=== PATIENT | male | born 1985 | race Asian ===

== ENCOUNTER 2018-02-07 01:31 | Emergency (ER) | payer MEDICAID ==
[~2018-02-07] VITALS: Ht 162.6 cm; Wt 56.0 kg
[2018-02-07 01:42] VITALS: BP 152/107
[2018-02-07] MEDS ORDERED: AMOX500C2 PO (02:15)
== END 2018-02-07 02:22 | disposition home or self-care (01) ==
LOC: ER 01:32
DX: H92.01 Otalgia, right ear (principal); R50.9 Fever, unspecified; Z79.899 Other long term (current) drug therapy
CPT/HCPCS: 99283

== ENCOUNTER → 2018-06-18 | Emergency (ER) | payer MEDICAID ==
[~2018-06-18] VITALS: Ht 162.6 cm; Wt 63.6 kg
[2018-06-18 20:58] VITALS: BP 135/106
[2018-06-18] MEDS: ibuprofen tablet 400 MG TABLET PO ONE (21:59)
== END | disposition home or self-care (01) ==
LOC: ER 20:56
DX: R07.89 Other chest pain (principal)
CPT/HCPCS: 71045; 93005; 99283

== ENCOUNTER 2019-04-29 19:34 | Emergency (ER) | payer MEDICAID ==
[~2019-04-29] VITALS: Ht 162.6 cm; Wt 59.0 kg
[2019-04-29 19:35] VITALS: BP 142/79
[2019-04-29] MEDS ORDERED: ibuprofen 200mg tablet PO ONE (20:30)
--- NOTE | 2019-04-29 20:38 | NUR ---
pt with minimal pain now as he reports he took a norco less than an hour ago and "its now starting to work". Reports he may want to take it just before discharge. Pt taken to xray now. pts daughter at bedside.
== END 2019-04-29 21:04 | disposition home or self-care (01) ==
LOC: ER 19:34
DX: R07.89 Other chest pain (principal); F17.200 Nicotine dependence, unspecified, uncomplicated; F19.90 Other psychoactive substance use, unspecified, uncomplicated; W19.XXXA Unspecified fall, initial encounter; Y93.89 Activity, other specified; Y92.89 Other specified places as the place of occurrence of the external cause; Y99.8 Other external cause status
CPT/HCPCS: 71046; 99284

== ENCOUNTER 2019-05-25 23:35 | Emergency (ER) | payer MEDICAID ==
[~2019-05-25] VITALS: Ht 154.9 cm; Wt 61.0 kg
[2019-05-25 23:37] VITALS: BP 152/109
--- NOTE | 2019-05-26 00:20 | NUR ---
Patient complains of numbness and pain to bilateral lower extremeties that is worse when drinking alchohol and worse at night. Denies any injury to the lower extremeties or to his neck or back. Symptoms have been ongoing for several weeks and he has an appointment with his PCP but does not want to wait a month.
== END 2019-05-26 00:39 | disposition home or self-care (01) ==
LOC: ER 23:36
DX: R20.2 Paresthesia of skin (principal); M25.572 Pain in left ankle and joints of left foot
CPT/HCPCS: 99281

== ENCOUNTER 2019-06-09 01:06 | Emergency (ER) | payer MEDICAID ==
[~2019-06-09] VITALS: Ht 162.6 cm; Wt 61.5 kg
[2019-06-09 01:07] VITALS: BP 152/107
--- NOTE | 2019-06-09 01:48 | NUR ---
PT IS SLEEPING ON GURNEY AND IN NO ACUTE DISTRESS. AWAITING MD AT THIS TIME.
--- NOTE | 2019-06-09 02:08 | NUR ---
Patient came to nursing station asking" how long as it going to take". He was seen steadily ambulating back to his room when asked to.
== END 2019-06-09 02:35 | disposition left against medical advice (07) ==
LOC: ER 01:06
DX: R20.0 Anesthesia of skin (principal); F10.129 Alcohol abuse with intoxication, unspecified; Y90.9 Presence of alcohol in blood, level not specified
CPT/HCPCS: 99281

== ENCOUNTER 2019-08-13 01:26 | Emergency (ER) | payer MEDICAID ==
[~2019-08-13] VITALS: Ht 162.6 cm; Wt 55.0 kg
[2019-08-13 01:35] VITALS: BP 146/99
--- NOTE | 2019-08-13 01:39 | NUR ---
PATIENT WAS OBSERVED AMBULATING WITH A STEADY GAIT, PATIENTS DISTAL PULSES INTACT NEURO ASSESSMENT NEGATIVE
== END 2019-08-13 02:13 | disposition left against medical advice (07) ==
LOC: ER 01:27
DX: R20.0 Anesthesia of skin (principal); Z53.21 Procedure and treatment not carried out due to patient leaving prior to being seen by health care provider

== ENCOUNTER 2020-12-28 13:39 | Inpatient (IN) | payer MEDICAID, OTHER ==
[~2020-12-28] VITALS: Ht 162.6 cm; Wt 68.3 kg
[2020-12-28 14:41] LABS: BASOPHILS % (AUTO) 0.2 % (0-1); EOSINOPHILS # (AUTO) 0.1 X10'3 (0-0.9); EOSINOPHILS % (AUTO) 1.2 % (0-6); HEMATOCRIT 43.5 % (42.0-52.0); HEMOGLOBIN 15.4 g/dl (14.0-17.9); LYMPHOCYTES # (AUTO) 0.7 X10'3 (1.1-4.8); LYMPHOCYTES % (AUTO) 7.5 % (21-51); MEAN CORPUSCULAR HEMOGLOBIN 34.9 PG (27.0-31.0); MEAN CORPUSCULAR HGB CONC 35.4 g/dL (33.0-36.5); MEAN CORPUSCULAR VOLUME 98.7 FL (78-98); MEAN PLATELET VOLUME 6.9 FL (7.4-10.4); MONOCYTES # (AUTO) 1.6 X10'3 (0-0.9); MONOCYTES % (AUTO) 17.2 % (2-12); NEUTROPHILS % (AUTO) 73.9 % (42-75); PLATELET COUNT 107 X10'3 (140-440); RED BLOOD COUNT 4.41 X10'6 (4.70-6.10); RED CELL DISTRIBUTION WIDTH 13.1 % (11.5-14.5); WHITE BLOOD COUNT 9.5 X10'3 (4.5-11.0)
[2020-12-28 14:59] LABS: ALANINE AMINOTRANSFERASE 121 U/L (12-78); ALBUMIN 4.8 G/DL (3.4-5.0); ALBUMIN/GLOBULIN RATIO 1.3 (1.1-1.5); ALKALINE PHOSPHATASE 101 IU/L (46-116); ANION GAP 10 (8-16); ASPARTATE AMINO TRANSFERASE 87 U/L (10-37); BILIRUBIN,TOTAL 1.3 MG/DL (0.1-1.0); BLOOD UREA NITROGEN 9 MG/DL (7-18); BUN/CREATININE RATIO 10.3 (5.4-32.0); CALCIUM 9.2 MG/DL (8.5-10.1); CHLORIDE 98 MMOL/L (99-107); CREATININE 0.87 MG/DL (0.60-1.10); ETHANOL < 0.010 GM/DL (0.0-0.010); GLUCOSE 98 MG/DL (70-104); POTASSIUM 3.4 MMOL/L (3.5-5.1); SODIUM 136 MMOL/L (135-145); TOTAL CARBON DIOXIDE 27.6 MMOL/L (24-32); TOTAL PROTEIN 8.5 G/DL (6.4-8.2); eGFR > 90 ML/MIN
[2020-12-28 15:09] LABS: PLATELET ESTIMATE DECREASED; TOTAL CELLS COUNTED 100
[2020-12-28] MEDS ORDERED: THIA50TA10 PO (16:14)
[2020-12-28] MEDS ORDERED: FOLI0.4T14 PO (16:14)
[2020-12-28] MEDS ORDERED: LORazepam 2 mg/ml vial IV ONE (16:50)
[2020-12-28] MEDS ORDERED: haloperidol lactate 5mg/ml inj IM ONE (16:50)
[2020-12-28] MEDS ORDERED: bisacodyl 10mg suppository rectal RC PRN (17:55)
[2020-12-28] MEDS ORDERED: magnesium 4gm in 100ml NS 100 ML IV PRN (17:55)
[2020-12-28] MEDS ORDERED: acetaminophen 650mg rectal suppository RC PRN (17:55)
[2020-12-28] MEDS ORDERED: potassium Cl 20 mEq SR tablet PO PRN (17:55)
[2020-12-28] MEDS ORDERED: potassium Cl 40MEQ/1/2NS 520ml 520 ML IV PRN ×2 (17:55)
[2020-12-28] MEDS ORDERED: acetaminophen 325mg tablet PO PRN ×2 (17:55)
[2020-12-28] MEDS: dextrose 5%-normal saline 1,000 ML IV SCH (17:55)
[2020-12-28] MEDS ORDERED: HYDROcodone/acetaminophen 10/325mg tab PO PRN (17:55)
[2020-12-28] MEDS ORDERED: haloperidol lactate 5mg/ml inj IM PRN (17:55)
[2020-12-28] MEDS ORDERED: ondansetron/PF 4mg/2ml inj IV PRN (17:55)
[2020-12-28] MEDS ORDERED: haloperidol 5mg tablet PO PRN (17:55)
[2020-12-28] MEDS ORDERED: magnesium 2GM in 50ml NS 50 ML IV PRN (17:55)
[2020-12-28] MEDS ORDERED: thiamine 100mg/ml 2ml inj. IV ONE (17:55)
[2020-12-28] MEDS ORDERED: diphenhydrAMINE 25mg capsule PO PRN (17:55)
[2020-12-28] MEDS ORDERED: morphine 2 MG/ML inj. syringe IV PRN ×2 (17:55)
[2020-12-28] MEDS ORDERED: metoclopramide 5 mg/ml inj IV PRN (17:55)
[2020-12-28] MEDS ORDERED: magnesium hydroxide 30ml (MOM) UD suspension PO PRN (17:55)
[2020-12-28] MEDS ORDERED: mag hydrox/Alum hydrox/simeth 30ml oral suspension PO PRN (17:55)
[2020-12-28] MEDS ORDERED: dextrose 50%-water 50ml dispensing syringe IV PRN (17:55)
[2020-12-28] MEDS ORDERED: magnesium Cl slow-release 64mg tablet PO PRN (17:55)
[2020-12-28] MEDS ORDERED: HYDROcodone/acetaminophen 5mg/325mg tablet PO PRN (17:55)
[2020-12-28 18:38] LABS: HEMOGLOBIN A1C 5.2 % (4.5-6.2)
[2020-12-28] MEDS: K and/or MAG REPLACEMENT MC SCH (23:21)
[2020-12-28] MEDS: heparin, porcine 5000 units/ml vial SQ SCH ×2 (23:21→23:22)
--- NOTE | 2020-12-28 23:23 | NUR ---
PT HAS HEPARIN SQ ORDERED [facility], [facility] [address], DR. LUGO NOTIFIED AND VERBAL TO HOLD TONIGHTS DOSE AND NEXT DOSE (8 AM DOSE)
--- NOTE | 2020-12-29 00:09 | NUR ---
[facility] CALL[facility] FOR [facility]. PT AWAITING IPA.
[2020-12-29] MEDS: LORazepam 2 mg/ml vial IV PRN ×3 (00:26→22:14)
--- NOTE | 2020-12-29 00:53 | NUR ---
pt encouraged over a 15 min period to try to void in urinal and was able to void aprox 100 ccs'. UA colleted. Gaurd remains at bedside and pt remains in hand and foot cuffs. Just given ativan 2 mg iv per etoh wdraw protocol as Pt withi increasing restlessness and mild tremors over the past hour. Awaiting IPA.
[2020-12-29 01:17] LABS: URINE AMPHETAMINE SCREEN NEGATIVE (Neg); URINE BARBITUATE SCREEN NEGATIVE (Neg); URINE BENZODIAZEPINES SCREEN POSITIVE (Neg); URINE CANNABINOID SCREEN NEGATIVE (Neg); URINE COCAINE SCREEN NEGATIVE (Neg); URINE METHADONE SCREEN NEGATIVE (Neg); URINE OPIATE SCREEN NEGATIVE (Neg); URINE PHENCYCLIDINE SCREEN NEGATIVE (Neg)
[2020-12-29 01:47] LABS: UA COLLECTION TYPE CLN CATCH MIDSTREAM
[2020-12-29 01:48] LABS: CLARITY,URINE CLEAR (Clear); COLOR,URINE Yellow (Yellow)
[2020-12-29 01:49] LABS: GLUCOSE, URINE Negative (Neg); KETONES,URINE TRACE mg/dl (Neg); NITRITES, URINE NEGATIVE (Neg); OCCULT BLOOD,URINE NEGATIVE (Neg); PROTEIN,URINE Negative (Neg); UROBILINOGEN,URINE 0.2 E.U/dL (0.2-1.0)
[2020-12-29 01:50] LABS: LEUKOCYTE ESTERASE ,URINE TRACE (Neg)
[2020-12-29 02:01] LABS: MUCUS STRANDS NONE SEEN /LPF (Neg); WBC,URINE 0-4 /HPF (0-4)
[2020-12-29] MEDS: dextrose 5%-normal saline 1,000 ML IV SCH ×3 (02:22→18:58)
[2020-12-29] MEDS: thiamine 100mg tablet PO SCH (08:00)
[2020-12-29] MEDS: multivitamins, therapeutics tablet PO SCH (08:00)
[2020-12-29] MEDS: folic acid 1mg tablet PO SCH (08:00)
[2020-12-29] MEDS: K and/or MAG REPLACEMENT MC SCH ×2 (08:00→20:00)
[2020-12-29 08:13] LABS: BASOPHILS % (AUTO) 0.2 % (0-1); EOSINOPHILS # (AUTO) 0.1 X10'3 (0-0.9); EOSINOPHILS % (AUTO) 1.5 % (0-6); HEMATOCRIT 43.8 % (42.0-52.0); HEMOGLOBIN 15.5 g/dl (14.0-17.9); LYMPHOCYTES # (AUTO) 0.5 X10'3 (1.1-4.8); LYMPHOCYTES % (AUTO) 5.2 % (21-51); MEAN CORPUSCULAR HEMOGLOBIN 34.7 PG (27.0-31.0); MEAN CORPUSCULAR HGB CONC 35.4 g/dL (33.0-36.5); MEAN PLATELET VOLUME 6.8 FL (7.4-10.4); MONOCYTES # (AUTO) 1.5 X10'3 (0-0.9); MONOCYTES % (AUTO) 14.8 % (2-12); NEUTROPHILS # (AUTO) 7.8 X10'3 (1.8-7.7); NEUTROPHILS % (AUTO) 78.3 % (42-75); PLATELET COUNT 120 X10'3 (140-440); RED BLOOD COUNT 4.47 X10'6 (4.70-6.10)
[2020-12-29 08:31] LABS: ALBUMIN/GLOBULIN RATIO 1.1 (1.1-1.5); ANION GAP 14 (8-16); ASPARTATE AMINO TRANSFERASE 87 U/L (10-37); BILIRUBIN,TOTAL 1.3 MG/DL (0.1-1.0); BLOOD UREA NITROGEN 7 MG/DL (7-18); BUN/CREATININE RATIO 9.6 (5.4-32.0); CALCIUM 8.5 MG/DL (8.5-10.1); CHLORIDE 105 MMOL/L (99-107); CREATININE 0.73 MG/DL (0.60-1.10); GLUCOSE 84 MG/DL (70-104); PHOSPHORUS 3.7 MG/DL (2.3-4.5); POTASSIUM 3.5 MMOL/L (3.5-5.1); SODIUM 141 MMOL/L (135-145); TOTAL CARBON DIOXIDE 22.5 MMOL/L (24-32); TOTAL PROTEIN 7.7 G/DL (6.4-8.2); eGFR > 90 ML/MIN
[2020-12-29 08:32] LABS: ALANINE AMINOTRANSFERASE 97 U/L (12-78); ALKALINE PHOSPHATASE 88 IU/L (46-116); AMYLASE 46 U/L (25-115); CHOL/HDL RATIO 1.8 (0.00-4.99); CHOLESTEROL 163 MG/DL (0-200); HDL CHOLESTEROL 89 MG/DL (35-60); LDL CHOLESTEROL 62 MG/DL (50-100); TRIGLYCERIDES 46 MG/DL (20-135)
[2020-12-29] MEDS ORDERED: LIDOcaine 2% 10ml TOPICAL JELLY (Urojet) TP ONE (10:05)
--- NOTE | 2020-12-29 10:45 | NUR ---
patient had 1100ml of urine in bladder was unable to go do to cognitive issues. Before ballooning catheter for ordered garcia, patient pulled out catheter and had large void all over bed. It appears that he has emptied bladder. Will monitor and place garcia if needed. Will leave out for now.
[2020-12-29 11:00] VITALS: BP 139/97
[2020-12-29 13:16] LABS: BACTERIA,URINE FEW /HPF (Neg); RBC,URINE 0-2 /HPF (0-2)
[2020-12-29 13:17] LABS: SQUAMOUS EPITHELIAL CELL,UR FEW /LPF (FEW)
[2020-12-29 15:00] VITALS: BP 138/88
[2020-12-29 18:00] VITALS: BP 108/71
--- NOTE | 2020-12-29 18:00 | NUR ---
Patient in room PCU 3021. I have received report from Dalila YOUNG and had the opportunity to ask questions and assume patient care.
[2020-12-29] MEDS ORDERED: pantoprazole 40 MG vial IV ONE (19:20)
--- NOTE | 2020-12-29 19:20 | NUR ---
Report given to Faina YOUNG. All questions answered. Pt still very sleepy, but more appropriate when awake. He is now A&Ox 2 when coming to the floor he was A&O x 1. Faina will monitor for signs of withdrawl and need for ativan. At this time he has been calm, heart rate and bp normal. No current signs of distress.
[2020-12-29] MEDS: heparin, porcine 5000 units/ml vial SQ SCH (20:35)
[2020-12-29 22:00] VITALS: BP 108/69
[2020-12-30] MEDS: dextrose 5%-normal saline 1,000 ML IV SCH ×2 (01:55→09:01)
[2020-12-30 02:00] VITALS: BP 113/76
[2020-12-30 06:00] VITALS: BP 109/77
--- NOTE | 2020-12-30 06:12 | NUR ---
Problems reprioritized. Patient report given, questions answered & plan of care reviewed with Marisol YOUNG.
[2020-12-30 07:09] LABS: BASOPHILS % (AUTO) 0.4 % (0-1); EOSINOPHILS # (AUTO) 0.3 X10'3 (0-0.9); EOSINOPHILS % (AUTO) 3.5 % (0-6); HEMATOCRIT 42.1 % (42.0-52.0); HEMOGLOBIN 15.1 g/dl (14.0-17.9); LYMPHOCYTES # (AUTO) 0.8 X10'3 (1.1-4.8); MEAN CORPUSCULAR HEMOGLOBIN 34.9 PG (27.0-31.0); MEAN CORPUSCULAR HGB CONC 35.8 g/dL (33.0-36.5); MEAN CORPUSCULAR VOLUME 97.5 FL (78-98); MEAN PLATELET VOLUME 6.7 FL (7.4-10.4); MONOCYTES # (AUTO) 1.3 X10'3 (0-0.9); NEUTROPHILS % (AUTO) 71.1 % (42-75); PLATELET COUNT 127 X10'3 (140-440); RED BLOOD COUNT 4.32 X10'6 (4.70-6.10); RED CELL DISTRIBUTION WIDTH 12.7 % (11.5-14.5); WHITE BLOOD COUNT 8.4 X10'3 (4.5-11.0)
[2020-12-30 07:30] LABS: ALANINE AMINOTRANSFERASE 78 U/L (12-78); ALBUMIN 3.4 G/DL (3.4-5.0); ALBUMIN/GLOBULIN RATIO 1.1 (1.1-1.5); ALKALINE PHOSPHATASE 71 IU/L (46-116); AMYLASE 46 U/L (25-115); ANION GAP 12 (8-16); ASPARTATE AMINO TRANSFERASE 54 U/L (10-37); BLOOD UREA NITROGEN 3 MG/DL (7-18); BUN/CREATININE RATIO 4.5 (5.4-32.0); CALCIUM 7.8 MG/DL (8.5-10.1); CHLORIDE 109 MMOL/L (99-107); CREATININE 0.66 MG/DL (0.60-1.10); GLUCOSE 109 MG/DL (70-104); MAGNESIUM 1.9 MG/DL (1.5-2.4); PHOSPHORUS 3.8 MG/DL (2.3-4.5); POTASSIUM 3.1 MMOL/L (3.5-5.1); SODIUM 143 MMOL/L (135-145); TOTAL CARBON DIOXIDE 21.8 MMOL/L (24-32); TOTAL PROTEIN 6.5 G/DL (6.4-8.2); eGFR > 90 ML/MIN
[2020-12-30] MEDS: multivitamins, therapeutics tablet PO SCH (07:53)
[2020-12-30] MEDS: potassium Cl 20 mEq SR tablet PO PRN ×2 (07:53→12:49)
[2020-12-30] MEDS: folic acid 1mg tablet PO SCH (07:53)
[2020-12-30] MEDS: thiamine 100mg tablet PO SCH (07:53)
[2020-12-30] MEDS: LORazepam 2 mg/ml vial IV PRN ×3 (07:54→12:50)
[2020-12-30] MEDS: heparin, porcine 5000 units/ml vial SQ SCH (07:54)
[2020-12-30] MEDS: K and/or MAG REPLACEMENT MC SCH (08:00)
[2020-12-30] MEDS ORDERED: pantoprazole 40 MG vial IV SCH (08:00)
[2020-12-30 11:00] VITALS: BP 125/86
--- NOTE | 2020-12-30 12:15 | NUR ---
PT AWAITING RIDE TO GO HOME Addendum: 12/30/20 at 1529 by Rebecca Marin RN WRONG PT
--- NOTE | 2020-12-30 15:31 | NUR ---
PT RELEASED FROM CUSTODY. PT REQUESTED TO LEAVE AMA. PT WAS GIVEN RISKS OF LEAVING AMA. STILL WANTED TO LEAVE. IV AND TELE REMOVED. PT ESCORTED DOWN TO LOBBY BY SECURITY. ALL BELONGINGS WITH PT Addendum: 12/30/20 at 1536 by Rebecca Marin RN NOTIFIED DR. HILL OF PT LEAVING AMA
--- NOTE | 2020-12-30 15:35 | NUR ---
ONE DOSE OF 2MG ATIVAN GIVEN BEFORE PT DECIDED TO LEAVE AMA. NOT SCANNED IN COMPUTER.
[2020-12-30] MEDS ORDERED: LORazepam 2 mg/ml vial IV PRN (17:55)
[2020-12-30] MEDS ORDERED: LORazepam 1 MG tablet PO PRN (17:55)
[2021-01-01] MEDS ORDERED: LORazepam 1 MG tablet PO PRN (17:55)
[2021-01-01] MEDS ORDERED: LORazepam 2 mg/ml vial IV PRN (17:55)
== END 2020-12-30 15:29 | disposition left against medical advice (07) | DRG 641 ==
LOC: ER 13:40 → EEVIPCON 17:54 → ED HOLD 17:54 → PCU 3S 12-29 09:45
PROVIDERS: ADMIT Family Medicine; ATTEND Family Medicine
DX: E87.6 Hypokalemia (principal); F10.239 Alcohol dependence with withdrawal, unspecified; F10.231 Alcohol dependence with withdrawal delirium; F22 Delusional disorders; Z53.29 Procedure and treatment not carried out because of patient's decision for other reasons; Y90.8 Blood alcohol level of 240 mg/100 ml or more
CPT/HCPCS: 36415; 70450; 71045; 80053; 80061; 80305; 80320; 81001; 82140; 82150; 82948; 83036; 83735; 84100; 85007; 85025; 87081; 87088; 92508; 92616; 93005; 96372; 96374; 97110; 97116; 97161; 99285; C9113; G0378; J1630; J1644; J2060; J3411; J3480; J7042

== ENCOUNTER 2021-08-31 00:59 | Emergency (ER) | payer MEDICAID ==
[~2021-08-31] VITALS: Ht 162.6 cm; Wt 61.4 kg
[~2021-08-31 00:59] MED LIST: FOLI0.4T14 PO; THIA50TA10 PO
[2021-08-31 01:05] VITALS: BP 141/96
== END 2021-08-31 02:07 | disposition left against medical advice (07) ==
LOC: ER 01:00
DX: R04.0 Epistaxis (principal); Z53.21 Procedure and treatment not carried out due to patient leaving prior to being seen by health care provider

== ENCOUNTER 2021-10-16 13:40 | Emergency (ER) | payer MEDICAID ==
[~2021-10-16] VITALS: Ht 162.6 cm; Wt 61.4 kg
[2021-10-16 13:59] VITALS: BP 135/107
== END 2021-10-16 15:10 | disposition left against medical advice (07) ==
LOC: ER 13:41
DX: M25.512 Pain in left shoulder (principal); M25.511 Pain in right shoulder; Z53.21 Procedure and treatment not carried out due to patient leaving prior to being seen by health care provider

== ENCOUNTER 2022-07-05 02:33 | Emergency (ER) | payer MEDICAID ==
[~2022-07-05] VITALS: Ht 162.6 cm; Wt 59.0 kg
[2022-07-05 03:56] LABS: BASOPHILS % (AUTO) 0.6 % (0-1); EOSINOPHILS # (AUTO) 0.1 X10'3 (0-0.9); HEMATOCRIT 45.1 % (42.0-52.0); HEMOGLOBIN 16.4 g/dl (14.0-17.9); LYMPHOCYTES # (AUTO) 2.2 X10'3 (1.1-4.8); MEAN CORPUSCULAR HEMOGLOBIN 34.1 PG (27.0-31.0); MEAN CORPUSCULAR HGB CONC 36.3 g/dL (33.0-36.5); MEAN CORPUSCULAR VOLUME 93.9 FL (78-98); MEAN PLATELET VOLUME 5.8 FL (7.4-10.4); MONOCYTES # (AUTO) 0.7 X10'3 (0-0.9); MONOCYTES % (AUTO) 10.8 % (2-12); NEUTROPHILS # (AUTO) 3.8 X10'3 (1.8-7.7); NEUTROPHILS % (AUTO) 55.6 % (42-75); PLATELET COUNT 221 X10'3 (140-440); RED CELL DISTRIBUTION WIDTH 13.6 % (11.5-14.5); WHITE BLOOD COUNT 6.8 X10'3 (4.5-11.0)
[2022-07-05 04:00] LABS: ALANINE AMINOTRANSFERASE 29 U/L (12-78); ALBUMIN 4.3 G/DL (3.4-5.0); ALBUMIN/GLOBULIN RATIO 1.2 (1.1-1.5); ALKALINE PHOSPHATASE 121 IU/L (46-116); ANION GAP 11 (8-16); ASPARTATE AMINO TRANSFERASE 30 U/L (10-37); BILIRUBIN,TOTAL 0.6 MG/DL (0.1-1.0); BLOOD UREA NITROGEN 1 MG/DL (7-18); BUN/CREATININE RATIO 1.7 (5.4-32.0); CHLORIDE 102 MMOL/L (99-107); CREATININE 0.59 MG/DL (0.60-1.10); GLUCOSE 103 MG/DL (70-104); POTASSIUM 3.4 MMOL/L (3.5-5.1); SODIUM 137 MMOL/L (135-145); TOTAL CARBON DIOXIDE 23.9 MMOL/L (24-32); eGFR > 90 ML/MIN
[2022-07-05 04:01] LABS: LIPASE 99 U/L (73-393)
--- NOTE | 2022-07-05 04:59 | NUR ---
pt ambulated to bathroom w/o difficulty
[2022-07-05 05:05] VITALS: BP 100/72
[2022-07-05] MEDS ORDERED: famotidine 20mg tablet PO ONE (05:30)
[2022-07-05] MEDS ORDERED: mag hydrox/Alum hydrox/simeth 30ml oral suspension PO ONE (05:30)
[2022-07-05] MEDS ORDERED: acetaminophen 325mg tablet PO ONE (05:30)
== END 2022-07-05 05:52 | disposition home or self-care (01) ==
LOC: ER 02:34
DX: R10.13 Epigastric pain (principal); R06.02 Shortness of breath; F41.9 Anxiety disorder, unspecified; Z72.89 Other problems related to lifestyle; Z79.899 Other long term (current) drug therapy
CPT/HCPCS: 36415; 71045; 80053; 83690; 84484; 85025; 93005; 99285; J7030

== ENCOUNTER 2023-08-05 12:24 | Emergency (ER) | payer MEDICAID ==
[~2023-08-05] VITALS: Ht 162.6 cm; Wt 65.4 kg
[2023-08-05 12:35] VITALS: BP 131/88; PULSE 99; RESP 16; TEMP 98.2; O2SAT 98
== END 2023-08-05 17:25 | disposition home or self-care (01) ==
LOC: ER 12:24
DX: S60.212A Contusion of left wrist, initial encounter (principal); S00.93XA Contusion of unspecified part of head, initial encounter; R55 Syncope and collapse; Z79.899 Other long term (current) drug therapy; W19.XXXA Unspecified fall, initial encounter; Y93.89 Activity, other specified; Y92.89 Other specified places as the place of occurrence of the external cause; Y99.8 Other external cause status
CPT/HCPCS: 29125; 70450; 73110; 73130; 99284

== ENCOUNTER 2023-11-12 20:17 | Emergency (ER) | payer MEDICAID ==
[~2023-11-12] VITALS: Ht 162.6 cm; Wt 63.0 kg
[2023-11-12 20:31] VITALS: BP 114/83; PULSE 80; TEMP 99.5; O2SAT 97
[2023-11-12] MEDS ORDERED: HYDR-3965 PO (21:21)
[2023-11-12 21:40] VITALS: RESP 18
[2023-11-12] MEDS: HYDROcodone/acetaminophen 5mg/325mg tablet PO ONE (21:40)
== END 2023-11-12 21:43 | disposition home or self-care (01) ==
LOC: ER 20:18
DX: S82.841A Displaced bimalleolar fracture of right lower leg, initial encounter for closed fracture (principal); F41.9 Anxiety disorder, unspecified; Z72.89 Other problems related to lifestyle; Z79.899 Other long term (current) drug therapy; X50.1XXA Overexertion from prolonged static or awkward postures, initial encounter; Y93.89 Activity, other specified; Y92.89 Other specified places as the place of occurrence of the external cause; Y99.8 Other external cause status
CPT/HCPCS: 29515; 73590; 73610; 73630; 99284; A6446; A6449

== ENCOUNTER 2023-11-15 16:11 | Emergency (ER) | payer MEDICAID ==
[~2023-11-15] VITALS: Ht 162.6 cm; Wt 65.9 kg
[~2023-11-15 16:11] MED LIST changes: +HYDR-3965 PO
[2023-11-15 16:15] VITALS: BP 117/87; PULSE 82; RESP 16; TEMP 98.9; O2SAT 99
== END 2023-11-15 17:59 | disposition home or self-care (01) ==
LOC: ER 16:12
DX: S82.841D Displaced bimalleolar fracture of right lower leg, subsequent encounter for closed fracture with routine healing (principal); Z79.899 Other long term (current) drug therapy; X50.1XXD Overexertion from prolonged static or awkward postures, subsequent encounter
CPT/HCPCS: 99282; 99283; A6446; A6449